=== PATIENT | female | born 1940 | race Caucasian/White ===

== ENCOUNTER 2025-01-06 14:17 | Emergency (ER) | payer MEDICARE, OTHER ==
[~2025-01-06] VITALS: Ht 149.9 cm; Wt 63.0 kg
[2025-01-06 14:19] VITALS: TEMP 96.8
--- NOTE | 2025-01-06 14:34 | ELECTROCARDIOGRAPH REPORT ---
[facility] Test Date: 2025-01-06 Test Time: 14:21:07 Pat Name: ODALIS VELEZ Department: EMERGENCY ROOM Room: Gender: F [employer]: : 1940 Requested By: JAVIER RESENDIZ Order Number: [id number] Reading MD: Dr. Mejia Mcgowan Measurements Intervals [place] Rate: 51 P: 1 DC: 143 QRS: 25 QRSD: 88 T: 42 QT: 468 QTc: 432 Interpretive Statements Sinus bradycardia Electronically Signed On 01-07-2025 19:18:[address] Mejia Mcgowan Please click the below link to view image of tracing.
--- NOTE | 2025-01-06 14:59 | Physician Documentation ---
History of Present Illness ~ Chief Complaint: Dizziness Stated Complaint: DIZZINESS Time Seen by MD: 14:58 Mode of Arrival: EMS HPI 84-year-old female presenting with a near syncopal episode She tells me that she has been doing okay until this morning when she felt like she was constipated. She went out to eat, and on the way home was having some abdominal discomfort. She stopped at a rest stop, and had a bowel movement. When she walked out of the bathroom she started to feel lightheaded, nauseous, b ecame very sweaty, and had to sit down. She tells me that she soaked her hair with sweat. She felt some tightness in her upper abdomen/lower chest area. She did not lose consciousness. Here now in the ED, she tells me that she feels better. She still feels a little bit constipated. She denies any history of similar episodes. No history of fainting or syncope. No history of heart attack. She denies any current chest discomfort, shortness of breath, dizziness, or nausea. Review of Systems Constitutional: Denies: fever Cardiovascular: Reports: lightheadedness Gastrointestinal: Reports: nausea Physical Exam Vital Signs: Temperature: 96.8, Source: Temporal, Heart Rate: 52, Respiratory Rate: 14, BP: 171/67, Pulse Oximetry: 96, Weight: 63.000 Physical Exam General: This is a pleasant and very healthy-appearing older woman, alert, talkative HEENT: Atraumatic, oropharynx appears slightly dry Heart: Mild bradycardia with a heart rate in the 50s, appears regular, appears sinus rhythm on the monitor Lungs: Clear breath sounds bilateral, normal work of breathing, normal oxygen saturation on room air Abdomen: Soft, nondistended, nontender all quadrants Extremities: Warm and well-perfused, no significant edema, no calf tenderness Neuro: Alert and oriented Psychiatric: Calm and cooperative with exam Progress Results/Orders Results/Orders Orders - JAVIER RESENDIZ MD Chest,Single View (01/06/25 14:32) Monitor (01/06/25 14:32) Saline Lock (01/06/25 14:32) Oxygen (01/06/25 14:32) Hs Troponin I W Calculations (01/06/25 17:32) Orthostatic Vs (01/06/25 ) Completed Orders - JAVIER RESENDIZ MD Chest,Single View (01/06/25 14:32) Cbc/Diff (01/06/25 14:32) BMP (01/06/25 14:32) PBNP (01/06/25 14:32) Electrocardiogram (01/06/25 14:32) Hs Troponin I W Calculations (01/06/25 14:32) Hs Troponin I W Calculations (01/06/25 16:32) Vital Signs 01/06/25 01/06/25 01/06/25 01/06/25 14:19 14:49 16:15 16:33 Temp 96.8 Pulse 52 52 54 Resp 16 14 12 16 B/P (MAP) 171/67 139/54 (82) 143/52 (82) Pulse Ox 96 98 99 01/06/25 16:50 Pulse 57 59 62 B/P (MAP) 140/58 150/53 158/55 Laboratory Tests Test 01/06/25 14:52 01/06/25 16:33 White Blood Count 5.0 Red Blood Count 4.78 Hemoglobin 15.3 Hematocrit 45.6 H Mean Corpuscular Volume 95.4 Mean Corpuscular Hemoglobin 32.1 H Mean Corpuscular Hemoglobin Concent 33.6 Red Cell Distribution Width 13.7 Platelet Count 234 Mean Platelet Volume 8.7 Neutrophils (%) (Auto) 64.1 Lymphocytes (%) (Auto) 26.1 Monocytes (%) (Auto) 7.5 Eosinophils (%) (Auto) 1.4 Basophils (%) (Auto) 0.9 Neutrophils # (Auto) 3.2 Lymphocytes # (Auto) 1.3 Monocytes # (Auto) 0.4 Eosinophils # (Auto) 0.1 Basophils # (Auto) 0.0 CBC Comment Sodium Level 139 Potassium Level 3.4 L Chloride Level 102 Carbon Dioxide Level 29.1 Anion Gap 8 Blood Urea Nitrogen 23 H Creatinine 0.92 H Estimated GFR/1.73 m2 58 BUN/Creatinine Ratio 25.0 H Glucose Level 129 H Calcium Level 9.4 Troponin I High Sensitivity 6 6 Pro-B-Type Natriuretic Peptide 198 Albumin 3.8 Chemistry Comments Troponin I High Sens Percent Delta 0 Troponin I Hi Sens Absolute Change 0 EKG/XRAY/CT/US/VASC/MRI EKG : Additional Comment I personally interpreted the EKG and this shows: Sinus bradycardia, rate 51, QTC 432, no STEMI or acute ischemic changes Chest X-Ray : Additional Comments I personally interpreted the x-ray, and it shows: No pneumothorax, focal consolidation or mediastinal widening Medical Decision Making Differential Dx:Considerations: Include: dehydration, dysrhythmia, electrolyte imbalance, encephalopathy, hypoglycemia, hypotension, myocardial infarction, renal failure, TIA, vertigo peripheral Additional Information The patient presents with a you episode of dizziness, which per her history could represent a vasovagal type episode. She also reported some central upper abdominal discomfort at the time. By time of my evaluation she is essentially asymptomatic. EKG shows sinus bradycardia without ischemic changes. Her workup was unremarkable, she may have a very mild acute kidney injury, but no previous labs for comparison. Two troponins are normal and there was no evidence of ACS. From her history, I suspect this is a vasovagal episode, but I explained to her that there was no way to prove this. It could still have been a heart related episode. I did offer admission for further observation and cardiac testing. The patient declined. She will be discharged home with home care instructions and a plan to follow up with the primary care doctor to discuss whether she needs further heart testing. Strict return precautions given. Departure Time of Disposition: 17:15 Disposition: 01 HOME / SELF CARE / HOMELESS Impression: Primary Impression: Dizziness Condition: Improved Discharge Instructions: Near-Syncope Referrals: NO PRIMARY CARE PROVIDER (PCP) Education Educated: Patient, Other Educated regarding: diagnosis, treatment, need for follow up Signature Scribe Signature: walter Attestation: JAVIER Portillo MD Jan 06, 2025 14:59
[2025-01-06 15:07] LABS: MEAN PLATELET VOLUME 8.7 FL (7.4-10.4); RED CELL DISTRIBUTION WIDTH 13.7 % (11.5-14.5)
--- NOTE | 2025-01-06 15:54 | RADIOLOGY REPORT ---
CHEST RADIOGRAPH Indication: CP Technique: Single frontal view of the chest was obtained Comparison: None FINDINGS: Lines and Tubes: None Lungs: No focal consolidation. Pleura: No effusion. No pneumothorax. Cardiomediastinal contours: Heart size is within normal limits with mild atherosclerotic calcification and uncoiling of the aorta. Bones: No acute osseous abnormality. IMPRESSION: No acute cardiopulmonary disease.
[2025-01-06 16:10] LABS: CREATININE 0.92 MG/DL (0.40-0.90); PRO BRAIN NATRIURETIC PEPTIDE 198 PG/ML (0-450); TOTAL CARBON DIOXIDE 29.1 MMOL/L (24-32); eCRCL 32 ML/MIN; eGFR 58 ML/MIN
[2025-01-06 17:32] VITALS: BP 150/63; PULSE 58; RESP 13; O2SAT 99
== END 2025-01-06 17:25 | disposition home or self-care (01) ==
LOC: ER 14:18
DX: R42 Dizziness and giddiness (principal); R55 Syncope and collapse; R11.0 Nausea; R06.02 Shortness of breath
CPT/HCPCS: 36415; 71045; 80048; 83880; 84484; 85025; 93005; 99285